=== PATIENT | male | born 1965 | race Caucasian/White ===

== ENCOUNTER 2018-01-15 13:55 | Emergency (ER) | payer OTHER, MEDICAID, SELFPAY ==
[2018-01-15 14:07] VITALS: BP 128/81; PULSE 69; RESP 20; TEMP 36.7; O2SAT 97
--- NOTE | 2018-01-15 14:17 | ED.MALEGU ---
HPI - Male Genitourinary General Chief complaint: Urogenital-Male Stated complaint: ABD PAIN,NOT ABLE TO EAT Time Seen by Provider: 01/15/18 14:11 Source: patient and old records reviewed Mode of arrival: ambulatory Limitations: no limitations History of Present Illness HPI Narrative: Patient is a 52-year-old male who presents with right testicular pain. It has been ongoing for a month he denies any injury. He actually has been seen evaluated at [facility] twice this month already he has had ultrasounds and CT scans. He states that every time he eats his right testicle receives into his abdomen and he can then proceeds to have pain for 9-12 hours at a time. He does not take any pain medicine during this time. He now is no longer eating because he is afraid of when he eats still have excruciating pain. He has had multiple hernia surgeries in the past. He denies any fever or chills. [place] they [place] insurance. MD Complaint: testicle pain Related Data Previous Rx's Medication Instructions Recorded meloxicam [Mobic] 7.5 mg PO BIDCC PRN #15 tab 01/12/16 citalopram 40 mg PO QDAY #30 tab 04/05/16 meloxicam 15 mg PO DAILY PRN #20 tab 01/15/18 Allergies Allergy/AdvReac Type Severity Reaction Status Date / Time cephalexin Allergy Severe TONGUE Verified 01/15/18 14:47 SWELLING AND HIVES Review of Systems Review of Systems GENERAL: Denies chills, fatigue, malaise, fever, sweats, travel HEENT: Denies sinus pain, ear pain, sore throat, difficulty swallowing, neck pain RESPIRATORY: Denies dyspnea, cough, wheezing, hemoptysis, sputum. CARDIOVASCULAR: Denies chest pain, palpitations, orthopnea, edema GASTROINTESTINAL: Denies nausea, vomiting, abdominal pain, diarrhea, constipation, melena. : See HPI MUSCULOSKELETAL: Denies weakness, joint pain, or bony pain SKIN: No rash, no erythema, no pruritus NEUROLOGIC: Denies weakness, dizziness, headache, numbness, change in speech, confusion PSYCHIATRIC: No concerning psychosocial issues. 12 point review of systems is negative except for those stated above and HPI All systems reviewed & are unremarkable except as noted in HPI and below PFSH Social History Smoking Status: Current every day smoker Exam Initial Vital Signs Initial Vital Signs: Vital Signs Temperature 98.0 F 01/15/18 14:07 Pulse Rate 69 01/15/18 14:07 Respiratory Rate 20 01/15/18 14:07 Blood Pressure 128/81 01/15/18 14:07 Pulse Oximetry 97 01/15/18 14:07 GENERAL: Patient appears frustrated and in pain HEENT: Head atraumatic,EOMI, pupils reactive, face symmetric CARDIOVASCULAR: Regular rate and rhythm without murmurs, rubs or gallops. RESPIRATORY: Breath sounds equal bilaterally, no wheezes rales or rhonchi. ABDOMEN: Soft, nontender. Normoactive bowel sounds all 4 quadrants. No guarding or rebound. : Nurse Merary present for exam. Right testicle is actually is in the inguinal canal the scrotal sac on the right side is empty. Left testicle is nontender and in anatomical position. EXTREMITIES: Normal range of motion, no clubbing or edema. Neurovascularly intact NEUROLOGICAL: Alert and oriented x4.Normal gait and speech. SKIN: Warm, dry, no laceration, no petechiae, no rashes or lesions. Course Orders Ordered: ED Orders 01/15/18 14:39 US scrotum Stat 01/15/18 14:40 Complete Blood Count AUTO DIFF Stat Comprehensive Metabolic Panel Stat Discontinued Medications Sodium Chloride (Normal Saline 0.9%) 1,000 mls @ 1,000 mls/hr IV BOLUS ONE Stop: 01/15/18 15:39 Last Infusion: 01/15/18 15:30 Dose: 0 mls/hr Admin: 01/15/18 14:47 Dose: 1,000 mls/hr Ketorolac Tromethamine (Toradol) 30 mg IV NOW ONE Stop: 01/15/18 14:40 Last Admin: 01/15/18 14:47 Dose: 30 mg Vital Signs - 8 hr 01/15/18 14:07 01/15/18 16:00 01/15/18 16:30 Temperature 98.0 F Pulse Rate 69 67 65 Respiratory Rate 20 14 14 Blood Pressure 128/81 Blood Pressure [Left Arm] 123/68 111/65 Pulse Oximetry 97 97 98 01/15/18 17:20 Temperature Pulse Rate 90 Respiratory Rate 18 Blood Pressure 118/80 Blood Pressure [Left Arm] Pulse Oximetry 99 MDM - Male Genitourinary Medical Records Attestation: I reviewed the patient's medical records. Lab Data Attestation: I reviewed the patient's lab results. Result diagrams: 01/15/18 14:40 01/15/18 14:40 Lab Results 01/15/18 01/15/18 Range/Units 14:40 14:40 WBC 9.9 (4.5-11.0) X10^3/uL RBC 5.32 (4.5-5.9) X10^6/uL Hgb 16.1 (13.5-17.5) g/dL Hct 47.2 (41-53) % MCV 88.7 (80-100) fL MCH 30.3 (26-34) PG MCHC 34.2 (30-36) % RDW 13.1 (11.6-14.8) % Plt Count 293 (150-400) X10^3/uL Neut % (Auto) 51.7 (50-75) % Lymph % (Auto) 35.3 (25-40) % [place] % (Auto) 10.9 (3-14) % Eos % (Auto) 1.1 L (2-4) % Baso % (Auto) 1.0 (0-2) % Neut # (Auto) 5100 (1280-8251) /uL Sodium 142 (137-145) mmol/L Potassium 4.0 (3.4-5.1) mmol/L Chloride 101 (98-107) mmol/L Carbon Dioxide 32 (22-32) mmol/L BUN 24 H (9-20) mg/dL Creatinine 0.70 (0.66-1.25) mg/dL Estimated GFR > 60.0 (>60) mL/min BUN/Creatinine Ratio 34.3 H (6-22) Glucose 89 (70-100) mg/dL Calcium 9.5 (8.4-10.2) mg/dL Total Bilirubin 0.9 (0.2-1.3) mg/dL AST 19 (17-59) IU/L ALT 19 L (21-72) IU/L Alkaline Phosphatase 56 (38-126) U/L Total Protein 7.3 (6.3-8.2) g/dL Albumin 4.4 (3.5-5.0) g/dL Globulin 2.9 (1.7-4.1) g/dL Albumin/Globulin Ratio 1.5 (1.0-2.8) Imaging Data Scrotum US: Radiologist's impression: PROCEDURE: US SCROTUM INDICATIONS: elevated right testicle TECHNIQUE: Real-time scanning was performed of the scrotum and testicles, with image documentation. Color and pulse Doppler interrogation was performed of both testicles. COMPARISON: [facility], US, TESTICLE IMAGING, 12/24/2015, 10:37. FINDINGS: Right: Testicle is normal in size at 3.9 x 3.3 x 2.0 cm, and homogenous in echotexture. Epididymis is normal in overall size and morphology. No hydrocele or varicoceles. Overlying scrotal skin is normal in thickness. Left: Testicle is normal in size at 3.2 x 2.4 x 2.3 cm, and homogeneous in echotexture. Epididymis is normal in overall size and morphology. There is a small left hydrocele. No varicocele. Overlying scrotal skin is normal in thickness. Doppler: Color and pulse Doppler demonstrate normal and symmetric arterial flow in both testicles. IMPRESSION: #1. No ultrasound evidence of testicular torsion. #2. Small left hydrocele. Dictated by: Ranjit Salcedo M.D. on 01/15/2018 at 16:27 MDM Narrative Medical decision making narrative: Have reviewed records from [facility]. On 01/01/2018 he had a normal ultrasound he also had a CT on January 08 which did show prior bilateral inguinal hernia repairs. It is blood work was within normal limits. He is instructed to follow up as outpatient with Urology but has been unsuccessful. Patient has had Toradol his testicle descended is by the time the scrotal ultrasound was done today. Today did ultrasound is within normal limits. I have called and talked to a Dr. Arce at the [facility] who states that a high-riding testicle in the inguinal canal is not an emergency and can be followed up as an outpatient. She did recommend follow-up at [facility] in [place]. I have given the patient [facility] Discharge Plan Departure Patient Disposition: Home Clinical Impression: Pain in right testicle Discharge Date/Time: 01/15/18 17:21 Interventions: ED Discharge Assessment Last Done: 01/15/18 17:20 Instructions: DI for Undescended Testes Activity Restrictions/Additional Instructions: *You have been diagnosed with high riding right testicle *What to do: At this time there is no sign of torsion, therefore no emergency. *Continue to take medications as directed Meloxicam once a day if needed for pain *Follow up with your primary care provider in 2-3 days, need follow-up with Urology as soon as possible *Return to ER if you should have fever, increasing pain any new, worsening or concerning symptoms Prescriptions: New meloxicam 15 mg tablet 15 mg PO DAILY PRN (Reason: pain (scale score 4-6)) Qty: 20 RF: 0 No Action meloxicam [Mobic] 7.5 MG tablet 7.5 mg PO BIDCC PRNQty: 15 RF: 0 citalopram 40 MG tablet 40 mg PO QDAY Qty: 30 RF: 0 Referrals: Dolores Martino MD [Physician] - Kashmir Jimenez MD [Non-Staff] - Ney Cabrera MD [Primary Care Provider] -
--- NOTE | 2018-01-15 14:39 | DI.US.S_ITS ---
PROCEDURE: US SCROTUM INDICATIONS: elevated right testicle TECHNIQUE: Real-time scanning was performed of the scrotum and testicles, with image documentation. Color and pulse Doppler interrogation was performed of both testicles. COMPARISON: [facility], , TESTICLE IMAGING, 12/24/2015, 10:37. FINDINGS: Right: Testicle is normal in size at 3.9 x 3.3 x 2.0 cm, and homogenous in echotexture. Epididymis is normal in overall size and morphology. No hydrocele or varicoceles. Overlying scrotal skin is normal in thickness. Left: Testicle is normal in size at 3.2 x 2.4 x 2.3 cm, and homogeneous in echotexture. Epididymis is normal in overall size and morphology. There is a small left hydrocele. No varicocele. Overlying scrotal skin is normal in thickness. Doppler: Color and pulse Doppler demonstrate normal and symmetric arterial flow in both testicles. IMPRESSION: #1. No ultrasound evidence of testicular torsion. #2. Small left hydrocele. Dictated by: Ranjit Salcedo M.D. on 01/15/2018 at 16:27 Approved by: Ranjit Salcedo M.D. on 01/15/2018 at 16:29
[2018-01-15] MEDS: KETOROLAC 60 MG/2 ML VIAL 30 MG IV (14:47)
[2018-01-15] MEDS: SODIUM CHLORIDE 0.9% 1,000 ML 1000 ML IV (14:47)
[2018-01-15 14:54] LABS: Add Manual Diff / Slide Review NO; Eosinophils Percent Auto 1.1 % (2-4); Hematocrit 47.2 % (41-53); Hemoglobin 16.1 g/dL (13.5-17.5); Lymphocytes Percent Auto 35.3 % (25-40); Mean Corpuscular HGB Conc 34.2 % (30-36); Mean Corpuscular Hemoglobin 30.3 PG (26-34); Mean Corpuscular Volume 88.7 fL (80-100); Monocytes Percent Auto 10.9 % (3-14); Neutrophils Absolute Auto 5100 /uL (3000-5900); Neutrophils Percent Auto 51.7 % (50-75); Platelet Count 293 X10^3/uL (150-400); Red Blood Cell Count 5.32 X10^6/uL (4.5-5.9); Red Cell Distribution Width 13.1 % (11.6-14.8); White Blood Cell Count 9.9 X10^3/uL (4.5-11.0)
[2018-01-15 15:05] LABS: Alanine Aminotransferase 19 IU/L (21-72); Albumin 4.4 g/dL (3.5-5.0); Albumin Globulin Ratio 1.5 (1.0-2.8); Alkaline Phosphatase 56 U/L (38-126); Aspartate Aminotransferase 19 IU/L (17-59); BUN Creatinine Ratio 34.3 (6-22); Bilirubin Total 0.9 mg/dL (0.2-1.3); Blood Urea Nitrogen 24 mg/dL (9-20); Calcium 9.5 mg/dL (8.4-10.2); Carbon Dioxide 32 mmol/L (22-32); Chloride 101 mmol/L (98-107); Estimated Glomerular Filt Rate > 60.0 mL/min (>60); Globulin 2.9 g/dL (1.7-4.1); Glucose 89 mg/dL (70-100); HEMOLYSIS < 15 (0-50); Sodium 142 mmol/L (137-145); Total Protein 7.3 g/dL (6.3-8.2)
[2018-01-15 16:00] VITALS: BP 123/68; PULSE 67; RESP 14; O2SAT 97
[2018-01-15 16:30] VITALS: BP 111/65; PULSE 65; RESP 14; O2SAT 98
[2018-01-15 17:20] VITALS: BP 118/80; PULSE 90; RESP 18; O2SAT 99
== END 2018-01-15 17:21 | disposition home or self-care (01) ==
PROVIDERS: Emergency Provider Emergency Medicine; PCP Family Medicine
DX: N50.811 Right testicular pain (principal)
CPT/HCPCS: 36591; 76870; 80053; 85025; 96361; 96374; 99283; 99284; J1885

== ENCOUNTER 2018-01-29 22:45 | Emergency (ER) | payer OTHER, MEDICAID, SELFPAY ==
--- NOTE | 2018-01-29 22:58 | ED.ABDPAIN ---
HPI - Abdominal Pain General Chief Complaint: Abdominal Pain Stated Complaint: Post op Pain Time Seen by Provider: 01/29/18 22:53 Source: patient Mode of arrival: ambulatory Limitations: no limitations History of Present Illness HPI narrative: Patient is a 52-year-old male who presents with right lower quadrant pain. He was seen evaluated here on 01/15/2018 and found to have a high-riding right testicle. He has since been seen by multiple ERs and eventually at the [facility] where he had a right inguinal hernia repair and clean now of all of scar tissue. He had surgery on the 24 of January. He was given 10 days of oxycodone. He feels like the surgery initially was helping his pain however this is the same pain that he was feeling before the surgery. It spasms but he has right groin pain. His testicle is not rescinded this time. He was given 100 mcg of fentanyl and 1 of Dilaudid prior to arrival and he is still in significant amount of pain. He is having regular bowel movements he is urinating he has not had fever or chills. Frustrated with the fact that he is still having pain. He has appointment with GI and Urology set up by the [place] MD complaint: abdominal pain Related Data Previous Rx's Medication Instructions Recorded meloxicam [Mobic] 7.5 mg PO BIDCC PRN #15 tab 01/12/16 citalopram 40 mg PO QDAY #30 tab 04/05/16 meloxicam 15 mg PO DAILY PRN #20 tab 01/15/18 Allergies Allergy/AdvReac Type Severity Reaction Status Date / Time cephalexin Allergy Severe TONGUE Verified 01/15/18 14:47 SWELLING AND HIVES Review of Systems Review of Systems GENERAL: Denies chills, fatigue, malaise, fever, sweats, travel HEENT: Denies sinus pain, ear pain, sore throat, difficulty swallowing, neck pain RESPIRATORY: Denies dyspnea, cough, wheezing, hemoptysis, sputum. CARDIOVASCULAR: Denies chest pain, palpitations, orthopnea, edema GASTROINTESTINAL: See HPI : Denies dysuria, frequency, incontinence, hematuria, urinary retention, flank pain. MUSCULOSKELETAL: Denies weakness, joint pain, or bony pain SKIN: No rash, no erythema, no pruritus NEUROLOGIC: Denies weakness, dizziness, headache, numbness, change in speech, confusion PSYCHIATRIC: No concerning psychosocial issues. 12 point review of systems is negative except for those stated above and HPI [facility] Surgical History H/O right inguinal hernia repair (Acute) Social History Smoking Status: Current every day smoker Exam Initial Vital Signs Initial Vital Signs: Vital Signs Temperature 98.7 F 01/29/18 23:05 Pulse Rate 97 H 01/29/18 23:05 Respiratory Rate 24 01/29/18 23:05 Blood Pressure 123/89 01/29/18 23:05 Pulse Oximetry 97 01/29/18 23:05 GENERAL: Appears in pain can't get comfortable HEENT: Head atraumatic,EOMI, pupils reactive CARDIOVASCULAR: Regular rate and rhythm without murmurs, rubs or gallops. RESPIRATORY: Breath sounds equal bilaterally, no wheezes rales or rhonchi. ABDOMEN: Soft, nontender. Normoactive bowel sounds all 4 quadrants. No guarding or rebound. Hernia site of noted incision is clean and dry no erythema no pus no swelling : Testicle descended though it is hot nonpainful, normal position EXTREMITIES: Normal range of motion, no clubbing or edema. Neurovascularly intact NEUROLOGICAL: Alert and oriented x4.Normal gait and speech. Cranial nerves II through XII grossly intact. SKIN: Warm, dry, no laceration, no petechiae, no rashes or lesions. Course Orders Ordered: ED Orders 01/29/18 22:50 Basic Metabolic Panel Stat Complete Blood Count AUTO DIFF Stat 01/30/18 00:11 XR acute abdomen series Stat Discontinued Medications Hydromorphone HCl (Dilaudid) 0.5 mg IV NOW ONE Stop: 01/30/18 00:12 Last Admin: 01/30/18 00:21 Dose: 0.5 mg Hydromorphone HCl (Dilaudid) 0.5 mg IV NOW ONE Stop: 01/30/18 04:40 Ketorolac Tromethamine (Toradol) 30 mg IV NOW ONE Stop: 01/29/18 22:55 Last Admin: 01/29/18 23:10 Dose: 30 mg Lorazepam (Ativan) 0.5 mg IV NOW ONE Stop: 01/29/18 23:27 Last Admin: 01/29/18 23:37 Dose: 0.5 mg Oxycodone/Acetaminophen (Percocet 5/325) 2 tab PO NOW ONE Stop: 01/30/18 04:40 Vital Signs - 8 hr 01/29/18 23:05 01/29/18 23:37 01/30/18 00:24 Temperature 98.7 F Pulse Rate 97 H 85 85 Respiratory Rate 24 18 Blood Pressure 123/89 Blood Pressure [Left Arm] 105/76 124/65 Pulse Oximetry 97 99 95 01/30/18 00:51 01/30/18 02:24 01/30/18 04:14 Temperature Pulse Rate 79 67 60 Respiratory Rate 22 18 Blood Pressure Blood Pressure [Left Arm] 119/83 118/67 110/66 Pulse Oximetry 100 97 96 MDM - Abdominal Pain Medical Records Attestation: I reviewed the patient's medical records. Lab Data Attestation: I reviewed the patient's lab results. Result diagrams: 01/29/18 22:50 01/29/18 22:50 Lab Results 01/29/18 01/29/18 Range/Units 22:50 22:50 WBC 16.8 H (4.5-11.0) X10^3/uL RBC 4.66 (4.5-5.9) X10^6/uL Hgb 14.2 (13.5-17.5) g/dL Hct 41.2 (41-53) % MCV 88.5 (80-100) fL MCH 30.5 (26-34) PG MCHC 34.5 (30-36) % RDW 12.7 (11.6-14.8) % Plt Count 269 (150-400) X10^3/uL Neut % (Auto) 70.2 (50-75) % Lymph % (Auto) 19.9 L (25-40) % [place] % (Auto) 8.1 (3-14) % Eos % (Auto) 0.7 L (2-4) % Baso % (Auto) 1.1 (0-2) % Neut # (Auto) 89209 H (5401-3427) /uL Sodium 141 (137-145) mmol/L Potassium 3.9 (3.4-5.1) mmol/L Chloride 105 (98-107) mmol/L Carbon Dioxide 27 (22-32) mmol/L BUN 21 H (9-20) mg/dL Creatinine 0.60 L (0.66-1.25) mg/dL Estimated GFR > 60.0 (>60) mL/min BUN/Creatinine Ratio 35.0 H (6-22) Glucose 102 H (70-100) mg/dL Calcium 9.4 (8.4-10.2) mg/dL Imaging Data Abdominal x-ray: Attestation: I personally reviewed and interpreted this imaging study as follows: My impression: No free air. No obstruction no air-fluid levels. Postsurgical changes noted and right lower quadrant MDM Narrative Medical decision making narrative: This is the same pain that patient has felt in the past. He has had multiple CT scans multiple ultrasounds. He has an appointment with Urology. He is given Dilaudid Ativan and Toradol which does seem to help his pain. He is given a prepack of oxycodone but a prescription for oxycodone. Discharge Plan Departure Patient Disposition: Home Clinical Impression: Acute postoperative pain of right groin Instructions: Groin Hernia -- Adult Activity Restrictions/Additional Instructions: *You have been diagnosed with right groin pain *What to do: Recommend as pain management, Urology consult, he will need primary care physician *Continue to take medications as directed *Follow up with your primary care provider in 2-3 days *Return to ER if you should have increased abdominal pain, testicular pain, or any new, worsening or concerning symptoms Prescriptions: No Action meloxicam [Mobic] 7.5 MG tablet 7.5 mg PO BIDCC PRNQty: 15 RF: 0 citalopram 40 MG tablet 40 mg PO QDAY Qty: 30 RF: 0 meloxicam 15 mg tablet 15 mg PO DAILY PRN (Reason: pain (scale score 4-6)) Qty: 20 RF: 0 Referrals: Kashmir Jimenez MD [Non-Staff] - Ney Cabrera MD [Primary Care Provider] -
[2018-01-29 23:05] VITALS: BP 123/89; PULSE 97; RESP 24; TEMP 37.1; O2SAT 97; BMI 24.3
[2018-01-29 23:09] LABS: Add Manual Diff / Slide Review NO; Basophils Percent Auto 1.1 % (0-2); Eosinophils Percent Auto 0.7 % (2-4); Hematocrit 41.2 % (41-53); Hemoglobin 14.2 g/dL (13.5-17.5); Lymphocytes Percent Auto 19.9 % (25-40); Mean Corpuscular HGB Conc 34.5 % (30-36); Mean Corpuscular Hemoglobin 30.5 PG (26-34); Mean Corpuscular Volume 88.5 fL (80-100); Monocytes Percent Auto 8.1 % (3-14); Neutrophils Absolute Auto 11800 /uL (3000-5900); Neutrophils Percent Auto 70.2 % (50-75); Platelet Count 269 X10^3/uL (150-400); Red Blood Cell Count 4.66 X10^6/uL (4.5-5.9); Red Cell Distribution Width 12.7 % (11.6-14.8); White Blood Cell Count 16.8 X10^3/uL (4.5-11.0)
[2018-01-29] MEDS: KETOROLAC 60 MG/2 ML VIAL 30 MG IV (23:10)
[2018-01-29 23:14] LABS: Blood Urea Nitrogen 21 mg/dL (9-20); Calcium 9.4 mg/dL (8.4-10.2); Carbon Dioxide 27 mmol/L (22-32); Chloride 105 mmol/L (98-107); Estimated Glomerular Filt Rate > 60.0 mL/min (>60); Glucose 102 mg/dL (70-100); HEMOLYSIS < 15 (0-50); Potassium 3.9 mmol/L (3.4-5.1); Sodium 141 mmol/L (137-145)
[2018-01-29 23:37] VITALS: BP 105/76; PULSE 85; RESP 18; O2SAT 99
[2018-01-29] MEDS: LORazepam 2 MG/ML SYRINGE 0.5 MG IV (23:37)
--- NOTE | 2018-01-30 00:11 | DI.RAD.S_ITS ---
PROCEDURE: XR ACUTE ABDOMEN SERIES INDICATIONS: ab pain recent surgery TECHNIQUE: One view chest and two views of the abdomen were acquired. COMPARISON: None. FINDINGS: Surgical changes and devices: None. Chest: Lungs are clear. Heart size is normal. No pleural effusions. No pneumoperitoneum. Abdomen: Bowel gas pattern is normal. No suspicious calcifications. Visualized solid organ contours appear normal. Bones: No suspicious bony lesions. IMPRESSION: Normal for age, source of current symptoms is not seen. Dictated by: Marquise Ridley M.D. on 01/30/2018 at 8:16 Approved by: Marquise Ridley M.D. on 01/30/2018 at 8:17
[2018-01-30] MEDS: HYDROMORPHONE 1 MG INJ 0.5 MG IV ×2 (00:21→04:59)
[2018-01-30 00:24] VITALS: BP 124/65; PULSE 85; O2SAT 95
[2018-01-30 00:51] VITALS: BP 119/83; PULSE 79; RESP 22; O2SAT 100
[2018-01-30 02:24] VITALS: BP 118/67; PULSE 67; RESP 18; O2SAT 97
[2018-01-30 04:14] VITALS: BP 110/66; PULSE 60; O2SAT 96
[2018-01-30] MEDS: OXYCODONE/APAP 5/325 PREPACK 1 BOTTLE MISC (04:59)
--- NOTE | 2018-01-30 05:04 | ED_ITS ---
HPI - Abdominal Pain General Chief Complaint: Abdominal Pain Stated Complaint: Post op Pain Time Seen by Provider: 01/29/18 22:53 Source: patient Mode of arrival: ambulatory Limitations: no limitations History of Present Illness HPI narrative: Patient is a 52-year-old male who presents with right lower quadrant pain. He was seen evaluated here on 01/15/2018 and found to have a high- riding right testicle. He has since been seen by multiple ERs and eventually at the [facility] where he had a right inguinal hernia repair and clean now of all of scar tissue. He had surgery on the 24 of January. He was given 10 days of oxycodone. He feels like the surgery initially was helping his pain however this is the same pain that he was feeling before the surgery. It spasms but he has right groin pain. His testicle is not rescinded this time. He was given 100 mcg of fentanyl and 1 of Dilaudid prior to arrival and he is still in significant amount of pain. He is having regular bowel movements he is urinating he has not had fever or chills. Frustrated with the fact that he is still having pain. He has appointment with GI and Urology set up by the [place] MD complaint: abdominal pain Related Data Previous Rx's Medication Instructions Recorded meloxicam [Mobic] 7.5 mg PO BIDCC PRN #15 tab 01/12/16 citalopram 40 mg PO QDAY #30 tab 04/05/16 meloxicam 15 mg PO DAILY PRN #20 tab 01/15/18 Allergies Allergy/AdvReac Type Severity Reaction Status Date / Time cephalexin Allergy Severe TONGUE Verified 01/15/18 14:47 SWELLING AND HIVES Review of Systems Review of Systems GENERAL: Denies chills, fatigue, malaise, fever, sweats, travel HEENT: Denies sinus pain, ear pain, sore throat, difficulty swallowing, neck pain RESPIRATORY: Denies dyspnea, cough, wheezing, hemoptysis, sputum. CARDIOVASCULAR: Denies chest pain, palpitations, orthopnea, edema GASTROINTESTINAL: See HPI : Denies dysuria, frequency, incontinence, hematuria, urinary retention, flank pain. MUSCULOSKELETAL: Denies weakness, joint pain, or bony pain SKIN: No rash, no erythema, no pruritus NEUROLOGIC: Denies weakness, dizziness, headache, numbness, change in speech, confusion PSYCHIATRIC: No concerning psychosocial issues. 12 point review of systems is negative except for those stated above and HPI [facility] Surgical History H/O right inguinal hernia repair (Acute) Social History Smoking Status: Current every day smoker Exam Initial Vital Signs Initial Vital Signs: Vital Signs Temperature 98.7 F 01/29/18 23:05 Pulse Rate 97 H 01/29/18 23:05 Respiratory Rate 24 01/29/18 23:05 Blood Pressure 123/89 01/29/18 23:05 Pulse Oximetry 97 01/29/18 23:05 GENERAL: Appears in pain can't get comfortable HEENT: Head atraumatic,EOMI, pupils reactive CARDIOVASCULAR: Regular rate and rhythm without murmurs, rubs or gallops. RESPIRATORY: Breath sounds equal bilaterally, no wheezes rales or rhonchi. ABDOMEN: Soft, nontender. Normoactive bowel sounds all 4 quadrants. No guarding or rebound. Hernia site of noted incision is clean and dry no erythema no pus no swelling : Testicle descended though it is hot nonpainful, normal position EXTREMITIES: Normal range of motion, no clubbing or edema. Neurovascularly intact NEUROLOGICAL: Alert and oriented x4.Normal gait and speech. Cranial nerves II through XII grossly intact. SKIN: Warm, dry, no laceration, no petechiae, no rashes or lesions. Course Orders Ordered: ED Orders 01/29/18 22:50 Basic Metabolic Panel Stat Complete Blood Count AUTO DIFF Stat 01/30/18 00:11 XR acute abdomen series Stat Discontinued Medications Hydromorphone HCl (Dilaudid) 0.5 mg IV NOW ONE Stop: 01/30/18 00:12 Last Admin: 01/30/18 00:21 Dose: 0.5 mg Hydromorphone HCl (Dilaudid) 0.5 mg IV NOW ONE Stop: 01/30/18 04:40 Ketorolac Tromethamine (Toradol) 30 mg IV NOW ONE Stop: 01/29/18 22:55 Last Admin: 01/29/18 23:10 Dose: 30 mg Lorazepam (Ativan) 0.5 mg IV NOW ONE Stop: 01/29/18 23:27 Last Admin: 01/29/18 23:37 Dose: 0.5 mg Oxycodone/Acetaminophen (Percocet 5/325) 2 tab PO NOW ONE Stop: 01/30/18 04:40 Vital Signs - 8 hr 01/29/18 23:05 01/29/18 23:37 01/30/18 00:24 Temperature 98.7 F Pulse Rate 97 H 85 85 Respiratory Rate 24 18 Blood Pressure 123/89 Blood Pressure [Left Arm] 105/76 124/65 Pulse Oximetry 97 99 95 01/30/18 00:51 01/30/18 02:24 01/30/18 04:14 Temperature Pulse Rate 79 67 60 Respiratory Rate 22 18 Blood Pressure Blood Pressure [Left Arm] 119/83 118/67 110/66 Pulse Oximetry 100 97 96 MDM - Abdominal Pain Medical Records Attestation: I reviewed the patient's medical records. Lab Data Attestation: I reviewed the patient's lab results. Result diagrams: 01/29/18 22:50 01/29/18 22:50 Lab Results 01/29/18 01/29/18 Range/Units 22:50 22:50 WBC 16.8 H (4.5-11.0) X10^3/uL RBC 4.66 (4.5-5.9) X10^6/uL Hgb 14.2 (13.5-17.5) g/dL Hct 41.2 (41-53) % MCV 88.5 (80-100) fL MCH 30.5 (26-34) PG MCHC 34.5 (30-36) % RDW 12.7 (11.6-14.8) % Plt Count 269 (150-400) X10^3/uL Neut % (Auto) 70.2 (50-75) % Lymph % (Auto) 19.9 L (25-40) % [place] % (Auto) 8.1 (3-14) % Eos % (Auto) 0.7 L (2-4) % Baso % (Auto) 1.1 (0-2) % Neut # (Auto) 96204 H (9651-9139) /uL Sodium 141 (137-145) mmol/L Potassium 3.9 (3.4-5.1) mmol/L Chloride 105 (98-107) mmol/L Carbon Dioxide 27 (22-32) mmol/L BUN 21 H (9-20) mg/dL Creatinine 0.60 L (0.66-1.25) mg/dL Estimated GFR > 60.0 (>60) mL/min BUN/Creatinine Ratio 35.0 H (6-22) Glucose 102 H (70-100) mg/dL Calcium 9.4 (8.4-10.2) mg/dL Imaging Data Abdominal x-ray: Attestation: I personally reviewed and interpreted this imaging study as follows: My impression: No free air. No obstruction no air-fluid levels. Postsurgical changes noted and right lower quadrant MDM Narrative Medical decision making narrative: This is the same pain that patient has felt in the past. He has had multiple CT scans multiple ultrasounds. He has an appointment with Urology. He is given Dilaudid Ativan and Toradol which does seem to help his pain. He is given a prepack of oxycodone but a prescription for oxycodone. Discharge Plan Departure Patient Disposition: Home Clinical Impression: Acute postoperative pain of right groin Instructions: Groin Hernia -- Adult Activity Restrictions/Additional Instructions: *You have been diagnosed with right groin pain *What to do: Recommend as pain management, Urology consult, he will need primary care physician *Continue to take medications as directed *Follow up with your primary care provider in 2-3 days *Return to ER if you should have increased abdominal pain, testicular pain, or any new, worsening or concerning symptoms Prescriptions: No Action meloxicam [Mobic] 7.5 MG tablet 7.5 mg PO BIDCC PRNQty: 15 RF: 0 citalopram 40 MG tablet 40 mg PO QDAY Qty: 30 RF: 0 meloxicam 15 mg tablet 15 mg PO DAILY PRN (Reason: pain (scale score 4-6)) Qty: 20 RF: 0 Referrals: Kashmir Jimenez MD [Non-Staff] - Ney Cabrera MD [Primary Care Provider] -
[2018-01-30 05:13] VITALS: BP 101/53; PULSE 66; RESP 15; TEMP 36.6; O2SAT 98
== END 2018-01-30 05:16 | disposition home or self-care (01) ==
PROVIDERS: Emergency Provider Emergency Medicine; PCP Family Medicine
DX: R10.31 Right lower quadrant pain (principal); G89.18 Other acute postprocedural pain
CPT/HCPCS: 74022; 80048; 85025; 96374; 96375; 96376; 99283; 99284; J1170; J1885; J2060

== ENCOUNTER → 2020-12-24 13:54 | Outpatient (CLI) | payer MEDICARE, MEDICAID, SELFPAY ==
[2020-12-27 20:07] LABS: Almond IgE <0.10 kU/L (Class 0); Cashew Nut IgE <0.10 kU/L (Class 0); Codfish Allergy IgE < 0.10 kU/L (Class 0); Egg White IgE <0.10 kU/L (Class 0); Hazelnut IgE <0.10 kU/L (Class 0); Milk IgE <0.10 kU/L (Class 0); Peanut IgE <0.10 kU/L (Class 0); Salmon Allergy IgE < 0.10 kU/L (Class 0); Scallop Allergy IgE < 0.10 kU/L (Class 0); Sesame seed Allergy IgE < 0.10 kU/L (Class 0); Shrimp IgE <0.10 kU/L (Class 0); Soybean IgE <0.10 kU/L (Class 0); Tuna Allergy IgE < 0.10 kU/L (Class 0); Walnut IgE <0.10 kU/L (Class 0); Wheat Allergy IgE < 0.10 kU/L (Class 0)
== END ==
PROVIDERS: PCP Family Medicine; Visit Provider Family Medicine
DX: R14.0 Abdominal distension (gaseous) (principal)
CPT/HCPCS: 86003

== ENCOUNTER → 2021-06-09 12:07 | Outpatient (CLI) | payer MEDICARE, MEDICAID, SELFPAY ==
[2021-06-09 19:14] LABS: Alanine Aminotransferase 21 IU/L (<50); Albumin Globulin Ratio 1.4 (1.0-2.8); Alkaline Phosphatase 49 U/L (38-126); Aspartate Aminotransferase 27 IU/L (17-59); BUN Creatinine Ratio 27.3 (6-22); Bilirubin Total 0.4 mg/dL (0.2-1.3); Blood Urea Nitrogen 18 mg/dL (9-20); Calcium 9.1 mg/dL (8.4-10.2); Carbon Dioxide 29 mmol/L (22-32); Chloride 106 mmol/L (98-107); Cholesterol 189 mg/dL (140-199); Estimated Glomerular Filt Rate > 60.0 mL/min (>60); Globulin 2.8 g/dL (1.7-4.1); Glucose 93 mg/dL (70-100); HDL Cholesterol 45 mg/dL (40-60); HEMOLYSIS < 15 (0-50); LDL Cholesterol Calculated 119 mg/dL (<100); Potassium 4.3 mmol/L (3.4-5.1); Sodium 139 mmol/L (137-145); Total Protein 6.8 g/dL (6.3-8.2); Triglycerides 124 mg/dL (35-150)
[2021-06-09 19:16] LABS: Add Manual Diff / Slide Review NO; Basophils Absolute Auto 100 /uL (0-100); Basophils Percent Auto 1.5 % (0-2); Eosinophils Absolute Auto 200 /uL (0-450); Eosinophils Percent Auto 2.1 % (2-4); Hematocrit 45.9 % (41-53); Hemoglobin 15.3 g/dL (13.5-17.5); Lymphocytes Absolute Auto 2900 /uL (1100-4500); Lymphocytes Percent Auto 30.5 % (25-40); Mean Corpuscular HGB Conc 33.3 % (30-36); Mean Corpuscular Hemoglobin 29.4 PG (26-34); Mean Corpuscular Volume 88.5 fL (80-100); Monocytes Absolute Auto 1000 /uL (0-900); Monocytes Percent Auto 10.4 % (3-14); Neutrophils Absolute Auto 5300 /uL (1500-7000); Neutrophils Percent Auto 55.5 % (50-75); Platelet Count 185 X10^3/uL (150-400); Red Blood Cell Count 5.19 X10^6/uL (4.5-5.9); Red Cell Distribution Width 13.5 % (11.6-14.8); White Blood Cell Count 9.4 X10^3/uL (4.5-11.0)
[2021-06-09 19:18] LABS: Hemoglobin A1C% w Est Avg Glu 5.8 % (4.0-6.0)
[2021-06-09 19:31] LABS: Vitamin D 25 Hydroxy (D3) 15.5 ng/mL (30.0-100.0)
[2021-06-09 19:43] LABS: Prostate Specific Antigen 1.09 ng/mL (0.10-4.00)
[2021-06-09 20:02] LABS: Vitamin B12 332 pg/mL (239-931)
== END ==
PROVIDERS: PCP Family Medicine; Visit Provider Physician Assistant
DX: G62.9 Polyneuropathy, unspecified (principal); Z13.220 Encounter for screening for lipoid disorders; Z13.1 Encounter for screening for diabetes mellitus; R33.9 Retention of urine, unspecified; K66.0 Peritoneal adhesions (postprocedural) (postinfection); R14.0 Abdominal distension (gaseous); R20.0 Anesthesia of skin; N41.1 Chronic prostatitis; R39.9 Unspecified symptoms and signs involving the genitourinary system
CPT/HCPCS: 80053; 80061; 82306; 82607; 83036; 84153; 85025

== ENCOUNTER → 2023-07-21 11:36 | Outpatient (CLI) | payer MEDICARE, OTHER, MEDICAID, SELFPAY ==
--- NOTE | 2023-07-21 11:39 | DI.MRI.S_ITS ---
PROCEDURE: MR LUMBAR SPINE WO CON INDICATIONS: low back pain, radiculopathy TECHNIQUE: Noncontrast sagittal T1 spin echo and T2 fast echo, sagittal STIR, and T2 fast spin echo through the lumbar spine. In cases with scoliosis, additional coronal T2 fast spin echo may be performed. COMPARISON: None. FINDINGS: Image quality: Excellent. Alignment and Curvature: Straightening of the normal lumbar lordosis. Minimal retrolisthesis of L5-S1. Bone Marrow: Marrow is of normal overall signal. No acute vertebral body compression fractures. Spinal Cord: Conus medullaris terminates at the L1 level. Visualized cord demonstrates normal signal and size. Paraspinous Soft Tissues: No paravertebral masses. Simple appearing renal cysts. T12-L1: Normal appearance. L1-L2: Normal appearance. L2-L3: Minimal disc bulge. Facet arthropathy and thickening of ligamentum flavum. Mild central canal stenosis. No neural foraminal stenosis. L3-L4: Mild disc desiccation and disc bulge. Facet arthropathy and thickening of ligamentum flavum. Mild central canal stenosis. No neural foraminal stenosis. L4-L5: Disc desiccation and mild diffuse disc bulge. Facet arthropathy. Mild central canal stenosis. Mild bilateral neural foraminal stenosis. L5-S1: Disc desiccation height loss. Diffuse disc bulge. Superimposed right foraminal disc extrusion. Facet arthropathy. No central canal stenosis. Severe right neural foraminal stenosis. Moderate left neural foraminal stenosis. IMPRESSION: 1. Degenerative changes of the lumbar spine as described above. 2. Mild central canal stenosis L2-L3 through L4-L5. 3. Severe right neural foraminal stenosis at L5-S1 secondary to foraminal disc extrusion. Moderate left neural foraminal stenosis at L5-S1. Dictated by: Henrique York M.D. on 07/21/2023 at 16:09 Approved by: Henrique York M.D. on 07/21/2023 at 16:13
--- NOTE | 2023-07-21 11:39 | DI.MRI.S_ITS ---
PROCEDURE: MR HEAD/BRAIN WO/W CON INDICATIONS: new onset headache severe TECHNIQUE: Noncontrast axial T1 spin echo, axial T2 fast spin echo, sagittal and axial FLAIR, coronal T2 fast spin echo, axial gradient echo, axial diffusion and ADC through the brain. After the administration of contrast, axial and coronal and sagittal 3D VIBE or T1 spin echo with fat saturation through the brain. COMPARISON: None. FINDINGS: Image quality: Excellent. CSF Spaces: Basal cisterns are patent. No extra-axial fluid collections. Ventricles are normal in size and shape. Brain: No midline shift. No intracranial bleeds or masses. No abnormal intracranial enhancement. The brainstem appears normal. Diffusion-weighted images demonstrate no acute infarct. No chronic ischemic insults. Normal intravascular flow voids are present. Skull and face: Calvarial marrow is normal in signal. Orbits appear normal. Sinuses: Sinuses and mastoids appear clear. IMPRESSION: Unremarkable brain MRI with without contrast. No acute intracranial process. Dictated by: Jame Arceo M.D. on 07/21/2023 at 14:59 Approved by: Jame Arceo M.D. on 07/21/2023 at 15:01
== END ==
PROVIDERS: PCP Family Medicine; Referring Provider Family Medicine; Visit Provider Family Medicine
DX: R51.9 Headache, unspecified (principal); M25.552 Pain in left hip; M47.26 Other spondylosis with radiculopathy, lumbar region; M47.27 Other spondylosis with radiculopathy, lumbosacral region; M48.061 Spinal stenosis, lumbar region without neurogenic claudication; M48.07 Spinal stenosis, lumbosacral region
CPT/HCPCS: 70553; 72148; A9579